=== PATIENT | female | born 1970 | race Caucasian/White ===

== ENCOUNTER → 2021-04-10 10:33 | Outpatient (CLI) | payer OTHER, SELFPAY ==
--- NOTE | ~2021-04-10 | US_ITS ---
EXAMINATION: US pelvic complete w TV DATE: 04/10/2021 11:20 INDICATION: Family history of malignant neoplasm of other genital organs TECHNIQUE: Multiple transabdominal and endovaginal sonographic images of the pelvis were obtained. COMPARISON: None. FINDINGS: The uterus measures 11.2 x 6.7 x 5.7 cm. There is a 2.4 x 1.8 x 1.9 cm hypoechoic area in t he left uterine body with the appearance of an intramural fibroid.. The endometrial complex measures 9 mm. The right ovary is not visualized however no right adnexal abnormality is seen. The left ovary measures 2.8 x 2.3 x 2.9 cm. There is normal vascular flow in the left ovary. There is no free fluid in the pelvis. IMPRESSION: 1. Unremarkable pelvic ultrasound. Reviewed, dictated and finalized at location A.
== END ==
PROVIDERS: PCP Internal Medicine
DX: Z80.49 Family history of malignant neoplasm of other genital organs (principal)
CPT/HCPCS: 76830; 76856

== ENCOUNTER → 2021-04-20 15:35 | Outpatient (CLI) | payer OTHER, SELFPAY ==
--- NOTE | ~2021-04-20 | MM_ITS ---
EXAMINATION: MM screening [facility] BI w kristyn HISTORY: Screening mammogram TECHNIQUE: Craniocaudal and mediolateral oblique 3-D tomosynthesis images were obtained and synthetic 2-D images were generated. CAD analysis was submitted and interpreted. COMPARISON: 12/18/2018, 08/30/2017, 07/30/2016 BREAST PARENCHYMAL COMPOSITION: The breasts are almost entirely fatty. FINDINGS: There is no evidence of suspicious mass, calcification, or architectural distortion to sugg est malignancy in either breast. There has been no suspicious interval change. IMPRESSION: 1. No mammographic evidence of malignancy. 2. Recommend routine screening mammography in one year. BI-RADS Category 1: Negative Reviewed, dictated and finalized at location A.
== END ==
PROVIDERS: PCP Internal Medicine
DX: Z12.31 Encounter for screening mammogram for malignant neoplasm of breast (principal)
CPT/HCPCS: 77063; 77067

== ENCOUNTER 2023-03-10 18:47 | Emergency (ER) | payer OTHER, BC, SELFPAY ==
--- NOTE | ~2023-03-10 | XR_ITS ---
XR chest 2V DATE: 03/10/2023 19:20 INDICATION: Chest congestion and cough for 4 days TECHNIQUE: 2 views COMPARISON: None FINDINGS: Heart size is normal. No hilar or mediastinal enlargement. No pulmonary infiltrate or conso lidation, pleural effusion or pulmonary vascular congestion or pneumothorax is detected. IMPRESSION: No active cardiopulmonary disease Reviewed, dictated and finalized at location A.
[2023-03-10 18:58] VITALS: BP 131/86; PULSE 90; RESP 16; TEMP 36.2; O2SAT 98
--- NOTE | 2023-03-10 19:17 | ED.URI ---
HPI - URI/Sore Throat General Chief Complaint: Upper Respiratory Infection Stated Complaint: SOB, wheezing, cough Time Seen by Provider: 03/10/23 19:08 Source: patient and RN notes reviewed Mode of arrival: ambulatory Limitations: no limitations History of Present Illness HPI Narrative: Patient presents today complaining of a 2 week history of worsening cough, wheezing, and shortness of breath. Prior to that she had had cold symptoms since the beginning of February that persisted for approximately 1 month before resolving. Patient states she has ?seasonal asthma? for which she uses Flonase daily as well as an albuterol inhaler as needed. For her current symptoms she was seen via telemedicine visit on 03/07/2023 and given prescriptions for prednisone and an Advair inhaler, which she does not feel have been helpful at all for her symptoms. States she does not feel that she can take a deep breath. Cough is occasionally productive with dark yellow sputum. She is a nonsmoker. Related Data Home Medications Medication Instructions Recorded Confirmed albuterol sulfate 90 mcg/actuation 90 mcg inhalation DIRECTED 03/10/23 03/10/23 aerosol inhaler fluconazole 150 mg tablet 150 mg DIRECTED 03/10/23 03/10/23 fluticasone 250 mcg-salmeterol 50 250 ea inhalation DIRECTED 03/10/23 03/10/23 mcg/dose blistr powdr for inhalation (Advair Diskus) labetalol 200 mg tablet 200 mg DIRECTED 03/10/23 03/10/23 prednisone 20 mg tablet 20 mg DIRECTED 03/10/23 03/10/23 Allergies Allergy/AdvReac Type Severity Reaction Status Date / Time No Known Allergies Allergy Unverified 12/01/15 07:29 Review of Systems Review of Systems: CONSTITUTIONAL: Denies body aches, fever, chills, or sweats. EYES: Denies visual changes, redness, or discharge. ENT: Denies rhinorrhea, congestion, sore throat, or otalgia. CARDIOVASCULAR: Denies chest pain, palpitations, or edema. RESPIRATORY: + cough, shortness of breath wheezing GASTROINTESTINAL: Denies abdominal pain, nausea, vomiting, or diarrhea. GENITOURINARY: Denies dysuria or hematuria. SKIN: Denies rash, itching, or wounds. MUSCULOSKELETAL: Denies back pain, joint pain, or myalgia. NEUROLOGIC: Denies headache, numbness, tingling, or weakness. PSYCH: Denies depression or anxiety. [facility] Past Medical History Medical History (Updated 03/11/23 @ 00:01 by Background Kacie) Seasonal asthma Family History Family History (Updated 08/14/15 @ 14:15 by DOCTOR UNKNOWN) Father Hypertension Sibling Hypertension Mother Family history of malignant neoplasm Other Diabetes mellitus Social History Social History Smoking status: Never smoker Alcohol intake: current Comments At time of signature, I have reviewed and agree with nursing past medical, surgical, social and family history unless otherwise noted. Please see nursing chart for further information. There is no relevant family history pertinent to the presenting complaint Exam Narrative: GENERAL: Well-appearing, well-nourished, and in no acute distress. HEAD: Normocephalic, atraumatic. EYES: EOMI. No redness or drainage. Conjunctivae normal. ENT: Mucous membranes pink and moist. Nares clear. No rhinorrhea. TMs normal bilaterally. Throat normal. Uvula midline. NECK: Normal AROM. Supple. No lymphadenopathy. CHEST: No respiratory distress. Clear to auscultation. Harsh cough noted. HEART: Regular rate and rhythm. No murmur appreciated. EXTREMITIES: Normal range of motion. No edema. SKIN: Warm, dry, no rash. Capillary refill normal. Normal skin turgor. NEURO: No focal deficits. Alert and oriented x3. Gait steady. PSYCH: Normal affect. No signs of depression or anxiety. Course Course Emergency Course: 1957- continue to wait on chest xray report. Level of Care: Express Care Visit Vital Signs Vital signs: Vital Signs Temperature 97.2 F L 03/10/23 18:58 Pulse Rate 90 03/10/23 18:58 Respirat
[2023-03-10] MEDS: ALBUTEROL SULFATE NEB 2.5 MG/3 ML INH INHALATION (19:22)
[2023-03-10] MEDS: IPRATROPIUM BR 0.02% INH SOLN 0.5 MG/2.5 ML VIAL INHALATION (19:22)
[2023-03-10 19:26] VITALS: PULSE 83; RESP 20; O2SAT 94
[2023-03-10 19:43] VITALS: PULSE 89; RESP 20; O2SAT 98
== END 2023-03-10 20:25 | disposition home or self-care (01) ==
PROVIDERS: Emergency Provider Nurse Practitioner; PCP Internal Medicine
DX: J40 Bronchitis, not specified as acute or chronic (principal)
CPT/HCPCS: 71046; 94640; 99213; G0463

== ENCOUNTER → 2023-06-20 12:26 | Outpatient (CLI) | payer OTHER, BC, SELFPAY ==
--- NOTE | ~2023-06-20 | US_ITS ---
EXAMINATION: US pelvic complete w TV DATE: 06/20/2023 12:57 INDICATION: Family history of neoplasm of ovary. TECHNIQUE: Multiple transabdominal and transvaginal sonographic images of the pelvis were obtained. COMPARISON: Ultrasound 04/10/2021 FINDINGS: TRANSABDOMINAL ULTRASOUND: The uterus measures 9.8 x 6.1 x 5.7 cm. There is no free fluid in the pelvis. TRANSVAGINAL ULTRASOUND: The endometrial complex measures 6 mm in thickness. There are multiple uterine fibroids measuring up to 2.7 cm. The right ovary is not visualized. The left ovary measures 4.0 x 2.3 x 2.7 cm. IMPRESSION: 1. Normal left ovary. Right ovary not visualized. 2. Uterine fibroids. Reviewed, dictated and finalized at location E.
--- NOTE | ~2023-06-20 | MM_ITS ---
EXAMINATION: MM screening [facility] BI w kristyn HISTORY: Screening TECHNIQUE: Craniocaudal and mediolateral oblique 3-D tomosynthesis images were obtained and synthetic 2-D images were generated. CAD analysis was submitted and interpreted. COMPARISON: Comparison to multiple prior studies sequentially, with oldest reviewed study dated 11/21. BREAST PARENCHYMAL COMPOSITION: The breasts are almost entirely fatty. FINDINGS: There is no evidence of suspicious mass, calcification, or architectural distortion to sugg est malignancy in either breast. There has been no suspicious interval change. IMPRESSION: 1. No mammographic evidence of malignancy. 2. Recommend routine screening mammography in one year. BI-RADS Category 1: Negative Reviewed, dictated and finalized at location A.
== END ==
PROVIDERS: PCP Internal Medicine; Visit Provider Obstetrics & Gynecology
DX: Z12.31 Encounter for screening mammogram for malignant neoplasm of breast (principal); Z80.41 Family history of malignant neoplasm of ovary; D25.9 Leiomyoma of uterus, unspecified
CPT/HCPCS: 76830; 76856; 77063; 77067

== ENCOUNTER 2023-10-24 15:48 | Outpatient (CLI) | payer OTHER, BC, SELFPAY ==
[2023-10-24 16:25] LABS: Anion Gap 3 mmol/L (8-16); Blood Urea Nitrogen 8 mg/dL (7-17); Calcium 8.5 mg/dL (8.4-10.2); Carbon Dioxide 29 mmol/L (22-30); Chloride 105 mmol/L (98-107); Estimated Glomerular Filt Rate > 60; Glucose 116 mg/dL (65-110); Potassium 4.1 mmol/L (3.4-5.0); Sodium 137 mmol/L (137-145)
== END 2023-10-24 15:49 | disposition home or self-care (01) ==
LOC: ANHSURGERY 15:53
PROVIDERS: Anesthesiology; PCP Internal Medicine; Visit Provider Urology
DX: E11.9 Type 2 diabetes mellitus without complications (principal); Z01.818 Encounter for other preprocedural examination
CPT/HCPCS: 36415; 80048

== ENCOUNTER 2023-10-28 02:45 | Day surgery (SDC) | payer OTHER, BC, SELFPAY ==
[2023-10-20 14:57] VITALS: BMI 55.3
--- NOTE | 2023-10-20 15:05 | SUR.PREOP ---
Report to the Outpatient Waiting Room, entrance under the green pavilion located off [facility], at time 0945 on date 10/28/23. Planned Procedure Time: 1145. Time changes happen often and if your time is changed the preop area will call you the afternoon before. - You and your visitor will be asked to self-screen and do not enter if you have any COVID symptoms. - A mask is optional within the hospital at this time. Patients may have clear liquids (water, carbonated beverages, clear teas, apple juice) until 3 hours prior to surgery with a maximum of 20 ounces. - No food from midnight until time of surgery Take the following medications with a SIP of water the morning of surgery: LABETALOL DO NOT STOP ANY OF YOUR OTHER PRESCRIPTION MEDICATIONS PRIOR TO SURGERY ?EXCEPT THE FOLLOWING Medications to discontinue per physician DO NOT TAKE OZYMPIC DOSE ON TUESDAY BEFORE PROCEDURE Date to take last dose OF OZYMPIC 10/19/23 Please no make-up, nail syriac, hairspray, perfume, deodorant, or body powder the day of surgery. No jewelry (including any body piercings) or valuables the day of surgery, leave them at home. Please take a shower or bath the night before, or the morning of, surgery with an antibacterial soap. Wear comfortable, loose fitting clothing. Children are encouraged to wear pajamas. - Jewelry must be removed prior to entering the operating room. Rings and piercings that are not removed may be cut off. - The hospital will not accept responsibility for valuables. - Please leave all valuables, including medications, at home the day of surgery. If you are going home after surgery, a licensed driver trainee must drive you home. - NO public transportation without another adult if you receive anesthesia. - We recommend that an adult stay with you for 24 hours following discharge. - We also recommend that you do not drive, make important decision, drink alcoholic beverages, or take any drugs that were not prescribed by your health care provider for at least 24 hours after your discharge time. Follow any additional instructions given to you from your surgeon. If you or anyone in your household have experienced Covid symptoms in the past week, please notify your surgeon or the nurse liaison at the phone number below for possible testing. Telephone instructions given to NORMA JAVED and asked if any additional questions and then verbalized understanding. Patient advised to call surgeon office or pre surgery nurse liaison [phone] if any additional questions.
--- NOTE | 2023-10-23 09:34 | PM.IMHP ---
H&P: HPI History of Present Illness Date/Time: 10/23/23 09:34 Chief Complaint: DAINA Narrative: bothersome ISD complicated by body habitus Review of Systems Review of Systems: All systems reviewed & are unremarkable except as noted in HPI and below PMFSH Past Medical History Medical History Seasonal asthma Family History Family History Father Hypertension Sibling Hypertension Mother Family history of malignant neoplasm Other Diabetes mellitus Social History Social History Smoking status: Never smoker Alcohol intake: current Substance use type: does not use Living arrangements: with family Spiritual care concerns: No Meds Home Medications and Allergies Home Medications Medication Instructions Recorded Confirmed Type albuterol sulfate 90 mcg/actuation 90 mcg inhalation DIRECTED 03/10/23 10/20/23 History aerosol inhaler fluconazole 150 mg tablet 150 mg DIRECTED 03/10/23 10/20/23 History labetalol 200 mg tablet 200 mg DIRECTED 03/10/23 10/20/23 History semaglutide 1 mg/dose (4 mg/3 mL) 1 mg subcut WEEKLY 10/20/23 10/20/23 History subcutaneous pen injector (Ozempic) Allergies Allergy/AdvReac Type Severity Reaction Status Date / Time No Known Allergies Allergy Verified 10/20/23 15:16 Exam Narrative: NAD obese min urethral mobility Assessment and Plan Assessment and plan (1) Intrinsic sphincter deficiency (ISD): Code(s): N36.42 - Intrinsic sphincter deficiency (ISD) Status: Acute Assessment and Plan: cysto/bulking agent
--- NOTE | 2023-10-28 07:15 | WPDHPUPDATE1 ---
History and Physical Update Update Date/Time: 10/28/23 07:15 History and Physical has been reviewed, including an updated exam of the patient. There are NO changes in the patient's condition. Risks, benefits, and alternatives have been discussed and questions answered. Patient agrees to proceed with procedure.
[2023-10-28 09:15] VITALS: BP 146/83; PULSE 83; RESP 16; TEMP 36.5; O2SAT 98
[2023-10-28] MEDS: LACTATED RINGERS 1,000 ML 30 ML IV CONT (09:15)
--- NOTE | 2023-10-28 09:48 | P.PNAN_ITS ---
Anes - Initial Pre Proc Eval Procedure: Operation Date: 10/28/23 10:30 Proposed Procedures p Cystoscopy, Bulking Agent - Hermilo Cunningham MD Date/Time: 10/28/23 09:48 Surgeon: Hermilo Cunningham MD Pre Op Diagnosis: intrinsic sphincter deficiency Patient Data Age: 53 Gender: F Height: 1.75 m Weight: 170.1 kg Allergies Allergy/AdvReac Type Severity Reaction Status Date / Time No Known Allergies Allergy Verified 10/20/23 15:16 Home Medications Medication Instructions Recorded Confirmed Type albuterol sulfate 90 mcg/actuation 90 mcg inhalation DIRECTED 03/10/23 10/20/23 History aerosol inhaler fluconazole 150 mg tablet 150 mg DIRECTED 03/10/23 10/20/23 History labetalol 200 mg tablet 200 mg DIRECTED 03/10/23 10/28/23 History semaglutide 1 mg/dose (4 mg/3 mL) 1 mg subcut WEEKLY 10/20/23 10/20/23 History subcutaneous pen injector (Ozempic) valsartan 160 1 tablet PO DAILY 10/28/23 10/28/23 History mg-hydrochlorothiazide 12.5 mg tablet Patient hx anesthesia problems: none Family hx anesthesia problems: none Results Review: All pre-operative results and documents have been reviewed as part of the pre- operative evaluation. [facility]LY [facility], [facility] Past Medical History Medical History Seasonal asthma Family History Family History Father Hypertension Sibling Hypertension Mother Family history of malignant neoplasm Other Diabetes mellitus Social History Social History Smoking status: Never smoker Alcohol intake: current Substance use type: does not use Living arrangements: with family Spiritual care concerns: No Anes - Eval Final PreProcedure Day of Procedure 10/28/23 09:48 Patient weight: super morbidly obese Heart: regular rate and rhythm Lungs: decreased breath sounds Airway: Mallampati scale class II Neurological: alert and oriented Last oral intake: >/= 8 hours ASA classification: III Emergent: no Anesthetic plan: proceed Anesthesia type and monitoring: general GIVS and standard monitoring Results Review: All pre-operative results and documents have been reviewed as part of the pre- operative evaluation. Informed Consent: The patient's anesthetic plan and its attendant risks and benefits were discussed with the patient/family/POA. Questions were solicited and answers provided to the satisfaction of the patient/family/POA.
[2023-10-28 10:06] LABS: Glucose Point of Care 120 mg/dl (65-105)
[2023-10-28] MEDS: ceFAZolin 3 GM/D5W 100 ML 100 ML IVPB (10:25)
[2023-10-28] MEDS: LIDOCAINE HCL 2% GEL UROJET 10 ML PKG MUCOUS MEM (10:37)
--- NOTE | 2023-10-28 10:50 | W.PM.PROC2 ---
Procedure Note - Detailed Date of Procedure 10/28/23 Pre-op Diagnosis intrinsic sphincter deficiency Post-op Diagnosis Same Procedure Performed Cystoscopy with suburethral injection of implant material Surgeon Hermilo Cunningham MD Anesthesia MAC and Local Indications This is a woman with intrinsic sphincter deficiency. She presents today for bulking agent. She understands risks of bleeding, infection, incomplete efficacy, need for repeat procedures, urinary tension. She agrees to proceed Findings Open urethra consistent with intrinsic sphincter deficiency Description of Procedure She was correctly identified. Informed consent obtained. She from the operating room. She was given monitored anesthesia care. She was given lidocaine jelly. Cystoscopy was performed. Bladder was examined and was normal without significant abnormalities. No tumors or stones. Urethra open consistent with intrinsic sphincter deficiency. I chose a site the mid urethra 2 cm distal the bladder neck. I injected bulking agent circumferentially. I used 2 syringes total. I formed 6 pillows. There was excellent bulking effect. Her bladder was left partially full. She was awakened transferred to PACU in stable condition. Estimated Blood Loss 1 Packing No Pathology None sent Complications No immediate complications Disposition PACU
[2023-10-28 10:55] VITALS: BP 113/55; PULSE 78; O2SAT 93
[2023-10-28 11:25] VITALS: BP 133/74; PULSE 74
[2023-10-28] MEDS: ONDANSETRON INJ 4 MG/2 ML VIAL IV PUSH (11:50)
[2023-10-28 11:55] VITALS: BP 155/93; PULSE 69
[2023-10-28] MEDS: SCOPOLAMINE 1 MG PATCH 1 PATCH TRANSDERM (12:13)
[2023-10-28] MEDS: diphenhydrAMINE HCl INJ 50 MG/ML VIAL 25 MG IV PUSH (12:14)
[2023-10-28 12:25] VITALS: BP 147/60; PULSE 66
[2023-10-28 12:55] VITALS: BP 164/83; PULSE 67
== END 2023-10-28 13:00 | disposition home or self-care (01) ==
PROVIDERS: PCP Internal Medicine; Visit Provider Urology
PROC: 3E0K8GC Introduction of Other Therapeutic Substance into Genitourinary Tract, Via Natural or Artificial Opening Endoscopic (ICD-10-PCS; CPT 51715; principal; 2023-10-28 10:30)
DX: N36.42 Intrinsic sphincter deficiency (ISD) (principal); J45.998 Other asthma; Z79.51 Long term (current) use of inhaled steroids; Z79.85 Long-term (current) use of injectable non-insulin antidiabetic drugs; E66.01 Morbid (severe) obesity due to excess calories; Z68.43 Body mass index [BMI] 50.0-59.9, adult
CPT/HCPCS: 51715; 36415; 80048; 82948; A9270; J0690; J1100; J1200; J2405; J2704; J3010; J7120; L8606